=== PATIENT | female | born 1980 | race Two or more races ===

== ENCOUNTER 2018-04-01 20:05 | Emergency (ER) | payer OTHER ==
[~2018-04-01] VITALS: Ht 149.9 cm; Wt 68.0 kg
[2018-04-01 20:20] VITALS: BP 177/98
== END 2018-04-02 | disposition home or self-care (01) ==
LOC: EDBD 20:05 → ER 20:21
DX: M54.5 Low back pain (principal); V43.52XA Car driver injured in collision with other type car in traffic accident, initial encounter; Y93.89 Activity, other specified; Y99.8 Other external cause status; Y92.410 Unspecified street and highway as the place of occurrence of the external cause
CPT/HCPCS: 71046; 72100; 72220; 73120; 93005